=== PATIENT | male | born 2005 | race Caucasian/White ===

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

== ENCOUNTER 2024-01-16 07:51 | Emergency (ER) | payer OTHER ==
[~2024-01-16] VITALS: Ht 175.2 cm; Wt 66.7 kg
[2024-01-16] MEDS ORDERED: IBUPROFEN 800 MG TAB PO ONE (08:25)
[2024-01-16] MEDS ORDERED: IBU800 M2 PO (08:26)
[2024-01-16] MEDS ORDERED: CEPHALEXIN500 M1 PO (08:26)
== END 2024-01-16 09:03 | disposition home or self-care (01) ==
LOC: ED 07:51
DX: S63.612A Unspecified sprain of right middle finger, initial encounter (principal); F32.A Depression, unspecified; F41.9 Anxiety disorder, unspecified; J45.909 Unspecified asthma, uncomplicated; Z91.030 Bee allergy status; Z98.890 Other specified postprocedural states; W23.0XXA Caught, crushed, jammed, or pinched between moving objects, initial encounter; Y93.89 Activity, other specified; Y92.89 Other specified places as the place of occurrence of the external cause; Y99.8 Other external cause status

== ENCOUNTER 2024-03-12 09:46 | Emergency (ER) | payer OTHER ==
[~2024-03-12] VITALS: Ht 172.7 cm; Wt 59.0 kg
[~2024-03-12 09:46] MED LIST changes: +IBU800 M2 PO
[2024-03-12] MEDS ORDERED: ADVAIR 250/501 EA INH (10:02)
[2024-03-12] MEDS ORDERED: methylPREDNISolone sod succ 125 MG VIAL IV ONE (10:10)
[2024-03-12] MEDS ORDERED: Albuterol Sulf/Ipratropium 3 ML VIAL NEB ONE (10:10)
[2024-03-12 10:16] LABS: BASO % 0.5 % (0.0-1.0); EOS # 0.5 10*3/uL (0.0-0.4); HEMATOCRIT 44.5 % (42.0-52.0); LYMPH # 1.7 10*3/uL (1.3-4.4); LYMPH % 19.7 % (27.0-41.0); MEAN CORPUSCULAR HGB 28.4 pg (27.0-31.0); MEAN CORPUSCULAR HGB CONC 31.9 g/dl (33.0-37.0); MEAN PLATELET VOLUME 8.3 fl (9.6-12.3); MONO # 0.5 10*3/uL (0.1-1.0); MONO % 5.4 % (3.0-9.0); NEUT # 5.8 10*3/uL (2.3-7.9); NEUT % 68.2 % (47.0-73.0); PLATELET COUNT AUTOMATED 289 10*3/uL (130-400); RED CELL DISTRI WIDTH 13.6 % (0-14.5); WHITE BLOOD COUNT 8.5 10*3/uL (4.8-10.8)
[2024-03-12 10:38] LABS: ALKALINE PHOSPHATASE 134 U/L (46-116); BUN 8 mg/dl (9-23); CHLORIDE 108 mmol/L (98-107); LIPASE 37 U/L (12-53); POTASSIUM 4.4 mmol/L (3.4-5.1); SGPT/ALT 34 U/L (5-49); TOTAL PROTEIN 7.3 gm/dL (6.0-8.0)
[2024-03-12] MEDS ORDERED: PREDNISONE20 M1 PO (11:02)
[2024-03-12] MEDS ORDERED: ONDANSETRON4 MG SL (11:02)
== END 2024-03-12 11:19 | disposition home or self-care (01) ==
LOC: ED 09:46
PROVIDERS: Internal Medicine
DX: J45.901 Unspecified asthma with (acute) exacerbation (principal); F17.210 Nicotine dependence, cigarettes, uncomplicated; Z91.030 Bee allergy status; Z98.890 Other specified postprocedural states

== ENCOUNTER 2024-04-19 21:23 | Emergency (ER) | payer OTHER ==
[~2024-04-19] VITALS: Ht 175.3 cm; Wt 59.0 kg
[~2024-04-19 21:23] MED LIST changes: +ONDANSETRON4 MG SL
[2024-04-19] MEDS ORDERED: MEPERIDINE HYDROCHLORIDE 25 MG/1 ML VIAL IM ONE (21:55)
[2024-04-19 22:24] LABS: BASO # 0.1 10*3/uL (0.0-0.1); BASO % 0.4 % (0.0-1.0); EOS # 0.2 10*3/uL (0.0-0.4); EOS % 1.4 % (1.0-4.0); HEMATOCRIT 43.9 % (42.0-52.0); LYMPH # 2.3 10*3/uL (1.3-4.4); LYMPH % 13.9 % (27.0-41.0); MEAN CELL VOLUME 88.3 fl (80.0-94.0); MEAN CORPUSCULAR HGB 28.4 pg (27.0-31.0); MEAN CORPUSCULAR HGB CONC 32.1 g/dl (33.0-37.0); MEAN PLATELET VOLUME 8.7 fl (9.6-12.3); MONO # 0.7 10*3/uL (0.1-1.0); MONO % 4.3 % (3.0-9.0); NEUT # 13.2 10*3/uL (2.3-7.9); NEUT % 79.6 % (47.0-73.0); PLATELET COUNT AUTOMATED 254 10*3/uL (130-400); RED BLOOD COUNT 4.97 10*6/uL (4.50-5.90); RED CELL DISTRI WIDTH 13.3 % (0-14.5); WHITE BLOOD COUNT 16.6 10*3/uL (4.8-10.8)
[2024-04-19 22:35] LABS: ACT PARTIAL THROMBO TIME 25.9 SECONDS (20.0-32.1)
[2024-04-19 22:44] LABS: BUN 9 mg/dl (9-23); CHLORIDE 107 mmol/L (98-107)
[2024-04-19 22:45] LABS: ETHYL ALCOHOL < 3.0 mg/dl (<3)
[2024-04-20 01:05] LABS: URINE AMPHETAMINES Negative (1000ng/ml); URINE BARBITURATES Negative (200ng/ml); URINE BENZODIAZEPINES Negative (200ng/ml); URINE CANNABINOIDS (THC) Positive (50ng/ml); URINE COCAINE Negative (300ng/ml); URINE METHADONE Negative (300ng/ml); URINE OPIATES Negative (300ng/ml); URINE PHENCYCLIDINE Negative (25ng/ml)
[2024-04-20] MEDS ORDERED: Ondansetron Hydrochloride 4 MG TAB SL ONE (01:10)
[2024-04-20] MEDS ORDERED: Acetaminophen/Hydrocodone 5 MG/325 MG TABLET PO ONE ×2 (01:10→02:00)
[2024-04-20] MEDS ORDERED: Bacitracin Zinc 14 GM TUBE T ONE (01:55)
== END 2024-04-20 02:06 | disposition home or self-care (01) ==
LOC: ED 21:23
PROVIDERS: Nurse Practitioner
DX: S61.412A Laceration without foreign body of left hand, initial encounter (principal); S43.102A Unspecified dislocation of left acromioclavicular joint, initial encounter; D72.829 Elevated white blood cell count, unspecified; Z91.030 Bee allergy status; Z98.890 Other specified postprocedural states; V86.95XA Unspecified occupant of 3- or 4- wheeled all-terrain vehicle (ATV) injured in nontraffic accident, initial encounter; Y93.89 Activity, other specified; Y92.410 Unspecified street and highway as the place of occurrence of the external cause; Y99.8 Other external cause status

== ENCOUNTER 2024-07-05 17:02 | Emergency (ER) | payer OTHER ==
[~2024-07-05] VITALS: Ht 172.7 cm; Wt 62.1 kg
[2024-07-05] MEDS ORDERED: Albuterol Sulf/Ipratropium 3 ML VIAL NEB ONE (18:55)
[2024-07-05] MEDS ORDERED: Ketorolac Tromethamine 60 MG/2 ML VIAL IM ONE (19:20)
== END 2024-07-05 19:45 | disposition home or self-care (01) ==
LOC: ED 17:02
DX: S43.102D Unspecified dislocation of left acromioclavicular joint, subsequent encounter (principal); J45.909 Unspecified asthma, uncomplicated; Z91.030 Bee allergy status; Z98.890 Other specified postprocedural states; W10.9XXD Fall (on) (from) unspecified stairs and steps, subsequent encounter

== ENCOUNTER 2024-07-25 13:58 | Emergency (ER) | payer OTHER ==
[~2024-07-25] VITALS: Ht 167.6 cm; Wt 62.1 kg
[2024-07-25] MEDS ORDERED: Metoclopramide Hydrochloride 10 MG/2 ML AMP IV ONE (14:35)
[2024-07-25] MEDS ORDERED: SODIUM CHLORIDE 0.9% 1,000 ML IV ONE (14:35)
[2024-07-25] MEDS ORDERED: diphenhydrAMINE hydrochloride 50 MG/ML VIAL IV ONE (14:35)
[2024-07-25] MEDS ORDERED: methylPREDNISolone sod succ 125 MG VIAL IV ONE (14:35)
[2024-07-25] MEDS ORDERED: Albuterol Sulfate 2.5 MG/3 ML VIAL NEB ONE (14:35)
[2024-07-25] MEDS ORDERED: MAGNESIUM SULFATE 50 ML IV ONE (14:35)
[2024-07-25 14:59] LABS: BASO # 0.1 10*3/uL (0.0-0.1); BASO % 0.3 % (0.0-1.0); EOS # 1.4 10*3/uL (0.0-0.4); EOS % 7.9 % (1.0-4.0); LYMPH # 1.2 10*3/uL (1.3-4.4); LYMPH % 6.6 % (27.0-41.0); MEAN CELL VOLUME 85.8 fl (80.0-94.0); MEAN CORPUSCULAR HGB 28.5 pg (27.0-31.0); MEAN CORPUSCULAR HGB CONC 33.3 g/dl (33.0-37.0); MEAN PLATELET VOLUME 8.3 fl (9.6-12.3); MONO # 0.8 10*3/uL (0.1-1.0); MONO % 4.4 % (3.0-9.0); NEUT # 13.9 10*3/uL (2.3-7.9); NEUT % 80.5 % (47.0-73.0); PLATELET COUNT AUTOMATED 309 10*3/uL (130-400); RED BLOOD COUNT 5.36 10*6/uL (4.50-5.90); RED CELL DISTRI WIDTH 13.7 % (0-14.5); WHITE BLOOD COUNT 17.3 10*3/uL (4.8-10.8)
[2024-07-25 15:11] LABS: BUN 8 mg/dl (9-23); CHLORIDE 106 mmol/L (98-107); POTASSIUM 3.5 mmol/L (3.4-5.1)
[2024-07-25] MEDS ORDERED: AVPAK AZITHROM250 M1 PO (15:48)
[2024-07-25] MEDS ORDERED: PREDNISONE20 M1 PO (15:48)
[2024-07-25] MEDS ORDERED: Ondansetron4 MG PO (15:48)
== END 2024-07-25 15:50 | disposition home or self-care (01) ==
LOC: ED 13:58
PROVIDERS: Emergency Medicine
DX: J45.901 Unspecified asthma with (acute) exacerbation (principal); Z20.822 Contact with and (suspected) exposure to COVID-19; R11.2 Nausea with vomiting, unspecified; R42 Dizziness and giddiness; I10 Essential (primary) hypertension; E78.5 Hyperlipidemia, unspecified; Z91.030 Bee allergy status; Z98.890 Other specified postprocedural states; Z87.891 Personal history of nicotine dependence

== ENCOUNTER 2024-09-16 06:10 | Emergency (ER) | payer OTHER ==
[~2024-09-16] VITALS: Ht 172.7 cm; Wt 63.5 kg
[~2024-09-16 06:10] MED LIST changes: +AVPAK AZITHROM250 M1 PO; +Ondansetron4 MG PO
[2024-09-16] MEDS ORDERED: SODIUM CHLORIDE 0.9% 1,000 ML IV ONE (06:50)
[2024-09-16] MEDS ORDERED: Ondansetron Hydrochloride 4 MG/2 ML VIAL IV ONE ×2 (06:50→08:05)
[2024-09-16 07:09] LABS: BASO % 0.3 % (0.0-1.0); EOS # 0.1 10*3/uL (0.0-0.4); EOS % 1.1 % (1.0-4.0); MEAN CELL VOLUME 88.8 fl (80.0-94.0); MEAN CORPUSCULAR HGB 28.6 pg (27.0-31.0); MEAN CORPUSCULAR HGB CONC 32.2 g/dl (33.0-37.0); MEAN PLATELET VOLUME 8.6 fl (9.6-12.3); MONO # 0.4 10*3/uL (0.1-1.0); NEUT # 9.3 10*3/uL (2.3-7.9); NEUT % 88.5 % (47.0-73.0); PLATELET COUNT AUTOMATED 275 10*3/uL (130-400); RED BLOOD COUNT 5.07 10*6/uL (4.50-5.90); RED CELL DISTRI WIDTH 13.5 % (0-14.5); WHITE BLOOD COUNT 10.5 10*3/uL (4.8-10.8)
[2024-09-16 07:33] LABS: ALKALINE PHOSPHATASE 100 U/L (46-116); BUN 11 mg/dl (9-23); CHLORIDE 106 mmol/L (98-107); LIPASE 29 U/L (12-53); POTASSIUM 3.4 mmol/L (3.4-5.1); SGPT/ALT 28 U/L (5-49)
[2024-09-16] MEDS ORDERED: Albuterol Sulf/Ipratropium 3 ML VIAL NEB ONE (08:00)
[2024-09-16] MEDS ORDERED: MAGNESIUM SULFATE 50 ML IV ONE (08:05)
[2024-09-16] MEDS ORDERED: Ketorolac Tromethamine 30 MG/ML VIAL IV ONE (08:55)
== END 2024-09-16 11:47 | disposition home or self-care (01) ==
LOC: ED 06:10
PROVIDERS: Internal Medicine
DX: R11.2 Nausea with vomiting, unspecified (principal); R19.7 Diarrhea, unspecified; R10.84 Generalized abdominal pain; J45.909 Unspecified asthma, uncomplicated; Z91.030 Bee allergy status; Z91.018 Allergy to other foods; Z88.8 Allergy status to other drugs, medicaments and biological substances; Z98.890 Other specified postprocedural states

== ENCOUNTER → 2024-10-05 | Outpatient (CLI) | payer OTHER | END | disposition home or self-care (01) | LOC: RAD 14:01 | PROVIDERS: ATTEND Pediatrics | DX: J98.4 Other disorders of lung (principal); R06.2 Wheezing ==

== ENCOUNTER 2024-11-06 22:00 | Emergency (ER) | payer OTHER ==
[~2024-11-06] VITALS: Wt 76.0 kg
[2024-11-06] MEDS ORDERED: Albuterol Sulfate 2.5 MG/3 ML VIAL NEB ONE (22:10)
[2024-11-06] MEDS ORDERED: methylPREDNISolone sod succ 125 MG VIAL IV ONE (22:10)
[2024-11-06] MEDS ORDERED: TRELEGY ELLIPT1 EACH INH (22:12)
[2024-11-06] MEDS ORDERED: AIRSUPRA 90-810.7 GM INH (22:12)
[2024-11-06] MEDS ORDERED: MAGNESIUM SULFATE 100 ML IV ONE (22:15)
[2024-11-06] MEDS ORDERED: Ondansetron Hydrochloride 4 MG/2 ML VIAL IV ONE (22:15)
[2024-11-06 22:35] LABS: BASO # 0.1 10*3/uL (0.0-0.1); BASO % 0.7 % (0.0-1.0); EOS # 0.8 10*3/uL (0.0-0.4); EOS % 7.8 % (1.0-4.0); HEMATOCRIT 48.3 % (42.0-52.0); MEAN CELL VOLUME 89.6 fl (80.0-94.0); MEAN CORPUSCULAR HGB 28.6 pg (27.0-31.0); MEAN CORPUSCULAR HGB CONC 31.9 g/dl (33.0-37.0); MEAN PLATELET VOLUME 8.6 fl (9.6-12.3); MONO # 0.5 10*3/uL (0.1-1.0); MONO % 5.1 % (3.0-9.0); NEUT # 5.8 10*3/uL (2.3-7.9); NEUT % 59.2 % (47.0-73.0); PLATELET COUNT AUTOMATED 314 10*3/uL (130-400); RED BLOOD COUNT 5.39 10*6/uL (4.50-5.90); RED CELL DISTRI WIDTH 12.6 % (0-14.5); WHITE BLOOD COUNT 9.8 10*3/uL (4.8-10.8)
[2024-11-06] MEDS ORDERED: Albuterol Sulf/Ipratropium 3 ML VIAL NEB ONE (22:35)
[2024-11-06 22:55] LABS: ALKALINE PHOSPHATASE 102 U/L (46-116); BUN 8 mg/dl (9-23); CHLORIDE 108 mmol/L (98-107); POTASSIUM 3.8 mmol/L (3.4-5.1); SGPT/ALT 30 U/L (5-49); TOTAL PROTEIN 7.6 gm/dL (6.0-8.0)
[2024-11-06] MEDS ORDERED: ALBUTEROL 8 GM INHALER INH ONE (23:05)
[2024-11-06] MEDS ORDERED: PREDNISONE20 M1 PO (23:34)
== END 2024-11-06 23:50 | disposition home or self-care (01) ==
LOC: ED 22:00
PROVIDERS: Nurse Practitioner
DX: J45.901 Unspecified asthma with (acute) exacerbation (principal); Z20.822 Contact with and (suspected) exposure to COVID-19; Z91.030 Bee allergy status; Z88.8 Allergy status to other drugs, medicaments and biological substances; Z91.018 Allergy to other foods; Z98.890 Other specified postprocedural states

== ENCOUNTER 2024-11-13 16:14 | Emergency (ER) | payer OTHER ==
[~2024-11-13] VITALS: Ht 175.2 cm; Wt 74.8 kg
[~2024-11-13 16:14] MED LIST changes: +AIRSUPRA 90-810.7 GM INH; +TRELEGY ELLIPT1 EACH INH
[2024-11-13] MEDS ORDERED: MAGNESIUM SULFATE 50 ML IV ONE (16:25)
[2024-11-13] MEDS ORDERED: methylPREDNISolone sod succ 125 MG VIAL IV ONE (16:25)
[2024-11-13] MEDS ORDERED: Albuterol Sulfate 2.5 MG/3 ML VIAL NEB ONE ×2 (16:37→16:40)
[2024-11-13] MEDS ORDERED: SODIUM CHLORIDE 0.9% 1,000 ML IV ONE (17:35)
[2024-11-13] MEDS ORDERED: SINGULAIR10 M1 PO (19:14)
== END 2024-11-13 19:20 | disposition home or self-care (01) ==
LOC: ED 16:14
DX: J45.901 Unspecified asthma with (acute) exacerbation (principal); Z91.030 Bee allergy status; Z91.048 Other nonmedicinal substance allergy status; Z88.8 Allergy status to other drugs, medicaments and biological substances; Z98.890 Other specified postprocedural states

== ENCOUNTER 2024-12-12 00:03 | Emergency (ER) | payer OTHER ==
[2024-12-12] MEDS ORDERED: methylPREDNISolone sod succ 125 MG VIAL IM ONE (00:15)
[2024-12-12] MEDS ORDERED: Albuterol Sulf/Ipratropium 3 ML VIAL NEB ONE ×2 (00:15→01:30)
[2024-12-12] MEDS ORDERED: MEDROL DOSEPAK4 MG PO (01:43)
[2024-12-12] MEDS ORDERED: SINGULAIR10 M1 PO (01:43)
[2024-12-12] MEDS ORDERED: VENT7GM INH (01:43)
== END 2024-12-12 02:04 | disposition home or self-care (01) ==
LOC: ED 00:03
DX: J45.901 Unspecified asthma with (acute) exacerbation (principal); Z91.030 Bee allergy status; Z91.018 Allergy to other foods; Z79.899 Other long term (current) drug therapy

== ENCOUNTER 2025-02-01 05:24 | Inpatient (IN) | payer OTHER ==
[~2025-02-01] VITALS: Ht 170.1 cm; Wt 76.3 kg
[~2025-02-01 05:24] MED LIST changes: +MEDROL DOSEPAK4 MG PO; +VENT7GM INH
[2025-02-01] MEDS ORDERED: Albuterol Sulf/Ipratropium 3 ML VIAL NEB ONE (05:30)
[2025-02-01] MEDS ORDERED: methylPREDNISolone sod succ 125 MG VIAL IV ONE ×2 (05:30→10:20)
[2025-02-01 05:31] VITALS: BP 126/84
[2025-02-01] MEDS ORDERED: Ondansetron Hydrochloride 4 MG/2 ML VIAL IV ONE (05:40)
[2025-02-01] MEDS ORDERED: Albuterol Sulfate 2.5 MG/3 ML VIAL NEB ONE (05:55)
[2025-02-01 06:12] LABS: BASO # 0.1 10*3/uL (0.0-0.1); BASO % 0.7 % (0.0-1.0); EOS # 0.9 10*3/uL (0.0-0.4); EOS % 8.4 % (1.0-4.0); HEMATOCRIT 43.2 % (42.0-52.0); MEAN CELL VOLUME 88.2 fl (80.0-94.0); MEAN CORPUSCULAR HGB 28.4 pg (27.0-31.0); MEAN CORPUSCULAR HGB CONC 32.2 g/dl (33.0-37.0); MEAN PLATELET VOLUME 8.4 fl (9.6-12.3); MONO # 0.7 10*3/uL (0.1-1.0); MONO % 6.8 % (3.0-9.0); NEUT % 58.1 % (47.0-73.0); PLATELET COUNT AUTOMATED 360 10*3/uL (130-400); RED CELL DISTRI WIDTH 13.1 % (0-14.5); WHITE BLOOD COUNT 10.4 10*3/uL (4.8-10.8)
[2025-02-01 06:31] LABS: BUN 9 mg/dl (9-23); CHLORIDE 108 mmol/L (98-107); POTASSIUM 3.3 mmol/L (3.4-5.1)
[2025-02-01 07:39] VITALS: BP 139/57
[2025-02-01] MEDS ORDERED: ACETAMINOPHEN 650 MG SUPP R PRN (08:50)
[2025-02-01] MEDS ORDERED: Ondansetron Hydrochloride 4 MG/2 ML VIAL IV PRN (08:50)
[2025-02-01] MEDS ORDERED: Acetaminophen/Hydrocodone 5 MG/325 MG TABLET PO PRN (08:50)
[2025-02-01] MEDS ORDERED: BISACODYL 10 MG SUPP R PRN (08:50)
[2025-02-01] MEDS ORDERED: BISACODYL 5 MG TAB PO PRN (08:50)
[2025-02-01] MEDS ORDERED: Magnesium Hydroxide 30 ML UDC PO PRN (08:50)
[2025-02-01] MEDS ORDERED: ACETAMINOPHEN 325 MG TAB PO PRN (08:50)
[2025-02-01] MEDS ORDERED: MAGNESIUM SULFATE 50 ML IV ONE (08:55)
[2025-02-01] MEDS ORDERED: Albuterol Sulf/Ipratropium 3 ML VIAL NEB SCH (08:55)
[2025-02-01] MEDS ORDERED: POTASSIUM CHLORIDE 20 MEQ TAB PO ONE (08:55)
[2025-02-01] MEDS ORDERED: Enoxaparin Sodium 40 MG/0.4 ML SYR SC SCH (10:00)
[2025-02-01 11:23] VITALS: BP 134/64
[2025-02-01 12:30] VITALS: BP 124/66
[2025-02-01] MEDS ORDERED: VENT7GM INH (14:30)
[2025-02-01] MEDS ORDERED: PREDNISONE10 MG PO (14:30)
[2025-02-02] MEDS ORDERED: methylPREDNISolone sod succ 40 MG VIAL IV SCH (10:00)
== END 2025-02-01 15:06 | disposition home or self-care (01) | DRG 202 ==
LOC: ED 05:24 → 5E 06:47 → EDHOLD 06:47 → 5E 12:14
PROVIDERS: Emergency Medicine; ADMIT Internal Medicine; ATTEND Internal Medicine
DX: J45.901 Unspecified asthma with (acute) exacerbation (principal); R65.10 Systemic inflammatory response syndrome (SIRS) of non-infectious origin without acute organ dysfunction; E87.6 Hypokalemia; F43.21 Adjustment disorder with depressed mood; D64.9 Anemia, unspecified; F32.9 Major depressive disorder, single episode, unspecified; Z91.030 Bee allergy status; Z88.8 Allergy status to other drugs, medicaments and biological substances; Z79.51 Long term (current) use of inhaled steroids; Z79.899 Other long term (current) drug therapy

== ENCOUNTER 2025-02-24 21:01 | Emergency (ER) | payer SELFPAY ==
[~2025-02-24] VITALS: Ht 172.7 cm; Wt 72.6 kg
[2025-02-24] MEDS ORDERED: Albuterol Sulf/Ipratropium 3 ML VIAL NEB ONE ×2 (21:05→22:30)
[2025-02-24] MEDS ORDERED: methylPREDNISolone sod succ 125 MG VIAL IV ONE (21:10)
[2025-02-24] MEDS ORDERED: SODIUM CHLORIDE 0.9% 500 ML IV ONE (21:10)
[2025-02-24] MEDS ORDERED: Ondansetron Hydrochloride 4 MG/2 ML VIAL IV ONE (21:15)
[2025-02-24] MEDS ORDERED: MAGNESIUM SULFATE 50 ML IV ONE (21:15)
[2025-02-24 21:44] LABS: BASO # 0.1 10*3/uL (0.0-0.1); BASO % 0.6 % (0.0-1.0); EOS # 0.8 10*3/uL (0.0-0.4); EOS % 6.4 % (1.0-4.0); MEAN CELL VOLUME 89.1 fl (80.0-94.0); MEAN CORPUSCULAR HGB 28.5 pg (27.0-31.0); MEAN PLATELET VOLUME 8.4 fl (9.6-12.3); MONO # 0.6 10*3/uL (0.1-1.0); NEUT # 8.8 10*3/uL (2.3-7.9); NEUT % 73.6 % (47.0-73.0); PLATELET COUNT AUTOMATED 324 10*3/uL (130-400); RED BLOOD COUNT 5.16 10*6/uL (4.50-5.90); RED CELL DISTRI WIDTH 13.6 % (0-14.5)
[2025-02-24 22:06] LABS: BUN 8 mg/dl (9-23); CHLORIDE 106 mmol/L (98-107); POTASSIUM 3.8 mmol/L (3.4-5.1)
== END 2025-02-24 23:14 | disposition home or self-care (01) ==
LOC: ED 21:01
PROVIDERS: Internal Medicine
DX: J45.901 Unspecified asthma with (acute) exacerbation (principal); Z91.018 Allergy to other foods; Z79.899 Other long term (current) drug therapy

== ENCOUNTER 2025-03-07 19:57 | Emergency (ER) | payer SELFPAY ==
[~2025-03-07] VITALS: Ht 170.1 cm; Wt 75.7 kg
[2025-03-07] MEDS ORDERED: Ketorolac Tromethamine 30 MG/ML VIAL IV ONE (20:40)
[2025-03-07] MEDS ORDERED: Metoclopramide Hydrochloride 10 MG/2 ML VIAL IV ONE (20:40)
[2025-03-07] MEDS ORDERED: Albuterol Sulfate 2.5 MG/3 ML VIAL NEB ONE (20:40)
[2025-03-07] MEDS ORDERED: SODIUM CHLORIDE 0.9% 1,000 ML IV ONE (20:40)
[2025-03-07] MEDS ORDERED: diphenhydrAMINE hydrochloride 50 MG/ML VIAL IV ONE (20:40)
[2025-03-07] MEDS ORDERED: ACETAMINOPHEN 325 MG TAB PO ONE (20:45)
[2025-03-07 21:00] LABS: BASO % 0.3 % (0.0-1.0); EOS # 0.8 10*3/uL (0.0-0.4); EOS % 5.4 % (1.0-4.0); HEMATOCRIT 45.5 % (42.0-52.0); MEAN CELL VOLUME 89.9 fl (80.0-94.0); MEAN CORPUSCULAR HGB 28.9 pg (27.0-31.0); MEAN CORPUSCULAR HGB CONC 32.1 g/dl (33.0-37.0); MEAN PLATELET VOLUME 8.2 fl (9.6-12.3); MONO # 0.8 10*3/uL (0.1-1.0); MONO % 5.1 % (3.0-9.0); NEUT # 11.9 10*3/uL (2.3-7.9); NEUT % 76.2 % (47.0-73.0); PLATELET COUNT AUTOMATED 344 10*3/uL (130-400); RED BLOOD COUNT 5.06 10*6/uL (4.50-5.90); RED CELL DISTRI WIDTH 13.8 % (0-14.5); WHITE BLOOD COUNT 15.6 10*3/uL (4.8-10.8)
[2025-03-07 21:17] LABS: BILIRUBIN Negative (Negative); BLOOD Negative (Negative); CLARITY Clear (Clear); COLOR Yellow (Yellow); GLUCOSE Negative (Negative); KETONE Negative (Negative); LEUKO ESTERASE Negative (Negative); NITRITE Negative (Negative); PH 6.5 (4.5-8.0); UROBILINOGEN 0.2 E.U./dl (0.0-1.0)
[2025-03-07 21:24] LABS: URINE AMPHETAMINES Negative (1000ng/ml); URINE BARBITURATES Negative (200ng/ml); URINE BENZODIAZEPINES Negative (200ng/ml); URINE CANNABINOIDS (THC) Positive (50ng/ml); URINE COCAINE Negative (300ng/ml); URINE METHADONE Negative (300ng/ml); URINE OPIATES Negative (300ng/ml); URINE PHENCYCLIDINE Negative (25ng/ml)
[2025-03-07 21:26] LABS: ALKALINE PHOSPHATASE 103 U/L (46-116); BUN 7 mg/dl (9-23); CHLORIDE 104 mmol/L (98-107); POTASSIUM 3.6 mmol/L (3.4-5.1); SGPT/ALT 21 U/L (5-49); TOTAL PROTEIN 7.1 gm/dL (6.0-8.0)
[2025-03-07 21:36] LABS: RBC 0-2 rbc/hpf (0-2)
[2025-03-07 21:37] LABS: BACTERIA TRACE; EPITHELIAL CELLS 0-2
[2025-03-07] MEDS ORDERED: AMOX-CLAV 875-1 EACH PO (22:39)
[2025-03-07] MEDS ORDERED: Amoxicillin/Clavulanate Pota 875 MG TAB PO ONE (22:40)
[2025-03-07] MEDS ORDERED: cefTRIAXone Sodium 1 GM/10 ML SYR IV ONE (22:50)
[2025-03-07] MEDS ORDERED: cefTRIAXone Sodium 1 GM VIAL IM ONE (23:05)
[2025-03-07] MEDS ORDERED: Motrin,Rufen800 MG PO (23:17)
[2025-03-07] MEDS ORDERED: Water, Sterile 10 ML VIAL ONE (23:27)
== END 2025-03-07 23:06 | disposition home or self-care (01) ==
LOC: ED 19:57
PROVIDERS: Nurse Practitioner
DX: J32.9 Chronic sinusitis, unspecified (principal); G43.909 Migraine, unspecified, not intractable, without status migrainosus; J45.909 Unspecified asthma, uncomplicated; F12.90 Cannabis use, unspecified, uncomplicated; Z20.822 Contact with and (suspected) exposure to COVID-19; Z79.899 Other long term (current) drug therapy; Z91.030 Bee allergy status; Z91.02 Food additives allergy status

== ENCOUNTER 2025-03-10 21:38 | Emergency (ER) | payer SELFPAY ==
[~2025-03-10] VITALS: Ht 165.1 cm; Wt 68.0 kg
[~2025-03-10 21:38] MED LIST changes: +AMOX-CLAV 875-1 EACH PO; +Motrin,Rufen800 MG PO
[2025-03-10] MEDS ORDERED: Albuterol Sulfate 2.5 MG/3 ML VIAL NEB ONE ×2 (21:50→22:15)
[2025-03-10] MEDS ORDERED: methylPREDNISolone sod succ 125 MG VIAL IV ONE (21:50)
[2025-03-10 22:01] LABS: BASO # 0.1 10*3/uL (0.0-0.1); BASO % 0.8 % (0.0-1.0); EOS # 0.8 10*3/uL (0.0-0.4); EOS % 9.2 % (1.0-4.0); HEMATOCRIT 42.7 % (42.0-52.0); MEAN CELL VOLUME 90.3 fl (80.0-94.0); MEAN CORPUSCULAR HGB 28.8 pg (27.0-31.0); MEAN CORPUSCULAR HGB CONC 31.9 g/dl (33.0-37.0); MEAN PLATELET VOLUME 8.3 fl (9.6-12.3); MONO # 0.7 10*3/uL (0.1-1.0); MONO % 7.7 % (3.0-9.0); NEUT # 4.5 10*3/uL (2.3-7.9); NEUT % 50.9 % (47.0-73.0); PLATELET COUNT AUTOMATED 292 10*3/uL (130-400); RED BLOOD COUNT 4.73 10*6/uL (4.50-5.90); RED CELL DISTRI WIDTH 13.6 % (0-14.5); WHITE BLOOD COUNT 8.7 10*3/uL (4.8-10.8)
[2025-03-10 22:27] LABS: BUN 10 mg/dl (9-23); CHLORIDE 107 mmol/L (98-107); POTASSIUM 3.6 mmol/L (3.4-5.1)
[2025-03-10] MEDS ORDERED: MAGNESIUM SULFATE 50 ML IV ONE (22:30)
[2025-03-10] MEDS ORDERED: ALBUTEROL 8 GM INHALER INH ONE (23:15)
== END 2025-03-10 23:57 | disposition home or self-care (01) ==
LOC: ED 21:38
PROVIDERS: Nurse Practitioner Family
DX: J45.901 Unspecified asthma with (acute) exacerbation (principal); G43.909 Migraine, unspecified, not intractable, without status migrainosus; Z91.030 Bee allergy status; Z91.018 Allergy to other foods; Z79.899 Other long term (current) drug therapy

== ENCOUNTER 2025-03-25 19:44 | Emergency (ER) | payer SELFPAY ==
[~2025-03-25] VITALS: Ht 170.1 cm; Wt 75.7 kg
[2025-03-25] MEDS ORDERED: ALBUTEROL SULFATE HF (20:05)
[2025-03-25] MEDS ORDERED: Dexamethasone Sodium Phospha 20 MG/5 ML VIAL IV ONE (20:10)
[2025-03-25] MEDS ORDERED: Ketorolac Tromethamine 30 MG/ML VIAL IV ONE (20:10)
[2025-03-25] MEDS ORDERED: Ondansetron Hydrochloride 4 MG/2 ML VIAL IV ONE (20:10)
[2025-03-25] MEDS ORDERED: Albuterol Sulf/Ipratropium 3 ML VIAL NEB ONE (20:10)
[2025-03-25 20:40] LABS: BASO # 0.1 10*3/uL (0.0-0.1); BASO % 0.5 % (0.0-1.0); EOS # 0.8 10*3/uL (0.0-0.4); HEMATOCRIT 46.7 % (42.0-52.0); MEAN CELL VOLUME 89.8 fl (80.0-94.0); MEAN CORPUSCULAR HGB 28.7 pg (27.0-31.0); MEAN CORPUSCULAR HGB CONC 31.9 g/dl (33.0-37.0); MEAN PLATELET VOLUME 8.3 fl (9.6-12.3); MONO # 0.8 10*3/uL (0.1-1.0); MONO % 5.8 % (3.0-9.0); NEUT # 9.1 10*3/uL (2.3-7.9); NEUT % 70.4 % (47.0-73.0); PLATELET COUNT AUTOMATED 329 10*3/uL (130-400); RED CELL DISTRI WIDTH 13.9 % (0-14.5); WHITE BLOOD COUNT 12.9 10*3/uL (4.8-10.8)
[2025-03-25 20:59] LABS: BUN 7 mg/dl (9-23); CHLORIDE 106 mmol/L (98-107); POTASSIUM 3.5 mmol/L (3.4-5.1)
[2025-03-25] MEDS ORDERED: PREDNISONE20 M1 PO (21:14)
[2025-03-25] MEDS ORDERED: ALBUTEROL 8 GM INHALER INH ONE (21:15)
== END 2025-03-25 21:38 | disposition home or self-care (01) ==
LOC: ED 19:44
PROVIDERS: Emergency Medicine
DX: J45.901 Unspecified asthma with (acute) exacerbation (principal); Z79.899 Other long term (current) drug therapy; Z91.030 Bee allergy status; Z91.02 Food additives allergy status; Z91.048 Other nonmedicinal substance allergy status